=== PATIENT | female | born 1945 | race Caucasian/White ===

== ENCOUNTER 2021-03-08 03:19 | Emergency (ER) | payer BC, MEDICAID ==
[~2021-03-08] VITALS: Ht 172.7 cm; Wt 97.0 kg
[~2021-03-08 03:19] MED LIST: ALBU8HFA PO; ALPR1TAB2 PO; BACL10TA PO; CARV3.1289 PO; ESTR0.5T PO; FAMO20TA8 PO; FLUT1DIS4 INH; HYDR25TA4 PO; MONT10TA21 PO; PREVCR VG; SERT100T PO; TRAM50TA2 PO; TRAZ-256 PO
[2021-03-08 03:30] VITALS: BP 125/61
--- NOTE | 2021-03-08 03:44 | NUR ---
PT REFUSES U/A, SHE BELIEVES THAT THE CREAM SHE USED EARLIER THIS WEEK HAD ABX IN IT AND WILL NOT SHOW A UTI, ATTEMPTED TO EDUCATE PT OF POTENTIAL UTI DESPITE CREAM USE. SHE REFUSES AND STATES "I DONT KNOW WHY THE AMBULANCE BROUGHT ME TO THIS HOSPITAL" PT DID NOT GIVE A HOSPITAL CHOICE TO EMS THEY BROUGHT HER TO THE NEAREST ONE. PT REQUESTS TO KNOW HOW LONG UNTIL SHE WILL BE SEEN BY A PROVIDER, EDUCATED PT ON WAIT TIMES AND STATUS OF FULL ER. PT ANGRY WITH RN, MOVED OUT TO [facility]. PT FURTHER STATES SHE WOULD LIKE TO GO HOME IF SHE IS NOT GOING TO BE SEEN AND PLACED IN A BED IMMEDIATELY. RN ATTEMPTS TO VERBALLY CALM PT AND RE-EDUCATE ON UNKNOWN WAIT TIMES. PT HAS CELL PHONE IN POSSESSION AND STATES SHE WILL GET A RIDE HOME. PT SPEAKING WITH OTHER PT'S IN [facility] STATING SHE HAD A STROKE AND IS UNABLE TO WALK WHILE STANDING UP FROM WHEELCHAIR AND SPEAKING WITH REGISTRATION. PT REQUESTS HOSPITAL PAY FOR AND CALL A [facility]AXI SO SHE CAN GO HOME, "I DIDN'T WANT TO COME TO THE HOSPITAL ANYWAY, THE EMT'S BROUGHT ME HERE" TECH CALLED TO ATTEMPT TO REINFORCE WHAT RN HAS ALREADY STATED TO PT. PT. GIVEN PHONE NUMBER FOR [employer], CHARGE AWARE.
== END 2021-03-08 04:34 | disposition left against medical advice (07) ==
LOC: ER 03:19
DX: R51.9 Headache, unspecified (principal); Z53.21 Procedure and treatment not carried out due to patient leaving prior to being seen by health care provider

== ENCOUNTER 2022-12-24 15:44 | Emergency (ER) | payer BC, MEDICAID ==
[~2022-12-24] VITALS: Ht 170.2 cm; Wt 81.8 kg
[~2022-12-24 15:44] MED LIST changes: +MONT-47 PO; -MONT10TA21 PO
[2022-12-24 16:40] LABS: BASOPHILS % (AUTO) 0.5 % (0-1); EOSINOPHILS # (AUTO) 0.2 X10'3 (0-0.9); HEMATOCRIT 36.5 % (35.0-45.0); LYMPHOCYTES # (AUTO) 1.5 X10'3 (1.1-4.8); LYMPHOCYTES % (AUTO) 27.2 % (21-51); MEAN CORPUSCULAR HEMOGLOBIN 29.7 PG (27.0-31.0); MEAN CORPUSCULAR HGB CONC 32.9 g/dL (33.0-36.5); MEAN CORPUSCULAR VOLUME 90.4 FL (78-98); MEAN PLATELET VOLUME 8.8 FL (7.4-10.4); MONOCYTES # (AUTO) 0.5 X10'3 (0-0.9); MONOCYTES % (AUTO) 8.2 % (2-12); NEUTROPHILS # (AUTO) 3.4 X10'3 (1.8-7.7); NEUTROPHILS % (AUTO) 60.1 % (42-75); PLATELET COUNT 169 X10'3 (140-440); RED BLOOD COUNT 4.04 X10'6 (4.20-5.60); RED CELL DISTRIBUTION WIDTH 14.6 % (11.5-14.5); WHITE BLOOD COUNT 5.7 X10'3 (4.5-11.0)
[2022-12-24 17:03] LABS: ALANINE AMINOTRANSFERASE 18 U/L (12-78); ALBUMIN 3.4 G/DL (3.4-5.0); ALBUMIN/GLOBULIN RATIO 1.1 (1.1-1.5); ALKALINE PHOSPHATASE 53 IU/L (46-116); ANION GAP 5 (8-16); ASPARTATE AMINO TRANSFERASE 19 U/L (10-37); BILIRUBIN,TOTAL 0.3 MG/DL (0.1-1.0); BLOOD UREA NITROGEN 28 MG/DL (7-18); BUN/CREATININE RATIO 17.5 (10.0-20.0); CALCIUM 9.4 MG/DL (8.5-10.1); CHLORIDE 104 MMOL/L (99-107); GLUCOSE 143 MG/DL (70-104); LIPASE 574 U/L (73-393); POTASSIUM 4.2 MMOL/L (3.5-5.1); SODIUM 141 MMOL/L (135-145); TOTAL CARBON DIOXIDE 31.6 MMOL/L (24-32); TOTAL PROTEIN 6.5 G/DL (6.4-8.2); eGFR 31 ML/MIN
[2022-12-24] MEDS ORDERED: HYDROcodone/acetaminophen 5mg/325mg tablet PO ONE (17:40)
[2022-12-24 17:57] LABS: CLARITY,URINE CLEAR (Clear); COLOR,URINE STRAW (Yellow); GLUCOSE, URINE NEGATIVE (Neg); KETONES,URINE NEGATIVE (Neg); LEUKOCYTE ESTERASE ,URINE NEGATIVE (Neg); NITRITES, URINE NEGATIVE (Neg); OCCULT BLOOD,URINE NEGATIVE (Neg); PH,URINE 6.5 (4.8-8.0); PROTEIN,URINE NEGATIVE (Neg); UROBILINOGEN,URINE 0.2 E.U/dL (0.2-1.0)
[2022-12-24 17:58] LABS: UA COLLECTION TYPE CLN CATCH MIDSTREAM
[2022-12-24] MEDS ORDERED: POLY119P2 PO (19:00)
[2022-12-24] MEDS ORDERED: HYDR-3965 PO (19:00)
[2022-12-24 19:30] VITALS: BP 140/78
== END 2022-12-24 19:31 | disposition home or self-care (01) ==
LOC: ER 15:45
DX: S86.912A Strain of unspecified muscle(s) and tendon(s) at lower leg level, left leg, initial encounter (principal); K59.00 Constipation, unspecified; I11.0 Hypertensive heart disease with heart failure; I50.9 Heart failure, unspecified; Z79.899 Other long term (current) drug therapy; W19.XXXA Unspecified fall, initial encounter; Y93.89 Activity, other specified; Y92.89 Other specified places as the place of occurrence of the external cause; Y99.8 Other external cause status
CPT/HCPCS: 36415; 73564; 74176; 80053; 81003; 83690; 85025; 99284